=== PATIENT | female | born 1945 ===

== ENCOUNTER 2017-05-24 07:04 | Observation (INO) | payer MEDICARE, MEDICAID ==
--- NOTE | 2017-05-24 07:41 | ED PDOC ---
HPI: CCC, URI, Sore Throat Time Seen by Provider: 05/24/17 07:08 Chief Complaint (Nursing): Shortness Of Breath Chief Complaint (Provider): cough, cold, congestion History Per: Patient History/Exam Limitations: no limitations Onset/Duration Of Symptoms: Days (x 2 weeks ) Additional Complaint(s): Sarina Sanches is a 71 year old female, with no previous medical history, who presents to the ED with complaints of a cough associated with generalized body weakness, dizziness, nausea and congestion ongoing for the past 2-3 weeks. Patient reports developing mild shortness of breath this morning which prompted ED visit. She denies any chest pain. PMD: [facility] Past Medical History Reviewed: Historical Data, Nursing Documentation, Vital Signs Vital Signs: Last Vital Signs Temp 98 F 05/24/17 15:07 Pulse 86 05/24/17 15:07 Resp 17 05/24/17 15:07 BP 136/86 05/24/17 15:07 Pulse Ox 98 05/24/17 15:07 - Medical History PMH: No Chronic Diseases, Migraine - Surgical History Surgical History: Cholecystectomy, Hernia Repair - Family History Family History: States: Unknown Family Hx - Home Medications Home Medications: Ambulatory Orders Medication Instructions Recorded Azithromycin [Zithromax Z-Agustin] 250 mg PO DAILY #1 packet 01/23/15 Codeine Phosphate/Promethazi 5 ml PO Q6 #80 ml 01/25/15 [Promethazine with Codeine 10 mg/5 ml-6.25 mg/] Nitrofurantoin Macrocrystals 100 mg PO BID #13 cap 05/24/17 [Macrobid] - Allergies Allergies/Adverse Reactions: Allergies Allergy/AdvReac Type Severity Reaction Status Date / Time No Known Allergies Allergy Verified 05/24/17 07:24 Review of Systems ROS Statement: Except As Marked, All Systems Reviewed And Found Negative Constitutional: Negative for: Fever, Chills Cardiovascular: Negative for: Chest Pain Respiratory: Positive for: Cough, Shortness of Breath, Other (congestion ) Gastrointestinal: Positive for: Nausea Neurological: Positive for: Weakness, Dizziness Physical Exam - Reviewed Nursing Documentation Reviewed: Yes Vital Signs Reviewed: Yes - Physical Exam Appears: Positive for: Well, Non-toxic, No Acute Distress Head Exam: Positive for: ATRAUMATIC, NORMAL INSPECTION, NORMOCEPHALIC Skin: Positive for: Normal Color, Warm, DRY Eye Exam: Positive for: EOMI, Normal appearance, PERRL ENT: Positive for: Normal ENT Inspection. Negative for: Pharyngeal Erythema, Tonsillar Exudate Neck: Positive for: Normal, Painless ROM, Supple Cardiovascular/Chest: Positive for: Regular Rate, Rhythm Respiratory: Positive for: CNT, Normal Breath Sounds Gastrointestinal/Abdominal: Positive for: Normal Exam, Bowel Sounds, Soft. Negative for: Tenderness Extremity: Positive for: Normal ROM Neurologic/Psych: Positive for: Alert, Oriented - Laboratory Results Result Diagrams: 05/24/17 07:00 05/24/17 07:00 - ECG O2 Sat by Pulse Oximetry: 97 (RA) Pulse Ox Interpretation: Normal Medical Decision Making Medical Decision Making: Initial Impression: Viral Syndrome vs pneumonia Initial Plan: * CT head w/o contrast * EKG * labs * Troponin I * urine dipstick * D-dimer * PTT * PT * CXR * accu-check * urinalysis * reevaluation Scribe Attestation: Documented by Nicol Bucio, acting as a scribe for Nicol Saleh MD. Provider Scribe Attestation: All medical record entries made by the Scribe were at my direction and personally dictated by me. I have reviewed the chart and agree that the record accurately reflects my personal performance of the history, physical exam, medical decision making, and the department course for this patient. I have also personally directed, reviewed, and agree with the discharge instructions and disposition. ED OBSERVATION Date of observation admission: 05/24/17 Time of observation admission: 08:00 - Observation admission statement Patient is being placed in observation because:: Pending ED workup - Goals of Observation Goals of observation are:: Ed workup and disposition Disposition - Clinical Impression Clinical Impression: UTI (urinary tract infection) - Disposition Disposition: Routine/Home Disposition Time: 15:00 Condition: STABLE
[2017-05-24 08:02] LABS: BASO # 0.1 K/uL (0.0-0.2); BASO % 0.5 % (0.0-2.0); EOS # 0.2 K/uL (0.0-0.7); HEMOGLOBIN 13.7 g/dL (12.0-16.0); LYMPH # 1.4 K/uL (1.0-4.3); LYMPH % 11.4 % (20.0-40.0); MEAN CELL VOLUME 88.2 fl (81.0-99.0); MEAN CORPUSCULAR HGB CONC 32.9 g/dL (33.0-37.0); MEAN PLATELET VOLUME 7.1 fl (7.2-11.7); MONO # 0.6 K/uL (0.0-0.8); MONO % 4.9 % (0.0-10.0); NEUT % 81.2 % (50.0-75.0); RBC 4.72 Mil/uL (3.80-5.20); RED CELL DISTRIBUTION WIDTH 14.1 % (11.5-14.5); WHITE BLOOD COUNT 12.3 K/uL (4.8-10.8)
[2017-05-24 08:25] LABS: ALB/GLOB RATIO 1.2 (1.0-2.1); ALBUMIN 4.5 g/dL (3.5-5.0); ALT/SGPT 29 U/L (9-52); AST/SGOT 23 U/L (14-36); BLOOD UREA NITROGEN 18 mg/dl (7-17); CALCIUM 9.8 mg/dL (8.4-10.2); GFR AFRICAN-AMERICAN > 60; GFR NON-AFRICAN AMERICAN > 60
[2017-05-24 09:32] LABS: PROTHROMBIN TIME 11.1 Seconds (9.8-13.1)
[2017-05-24 09:33] LABS: PARTIAL THROMBOPLASTIN TIME 28.5 Seconds (25.6-37.1)
[2017-05-24] MEDS ORDERED: Iodixanol 320 MG/ML 100 ML BOTTLE IV ONE (09:47)
[2017-05-24] MEDS ORDERED: Sodium Chloride 0.9% 50 ML IV ONE (09:47)
--- NOTE | 2017-05-24 12:16 | CT ---
PROCEDURE: CT HEAD WITHOUT CONTRAST. HISTORY: Dizziness COMPARISON: None available. TECHNIQUE: Axial computed tomography images were obtained through the head/brain without intravenous contrast. Radiation dose: Total exam DLP = 1098.96 mGy-cm. This CT exam was performed using one or more of the following dose reduction techniques: Automated exposure control, adjustment of the mA and/or kV according to patient size, and/or use of iterative reconstruction technique. FINDINGS: HEMORRHAGE: No acute parenchymal, subarachnoid nor extra-axial hemorrhage. BRAIN: Mild chronic periventricular white matter ischemic changes seen extending peripherally into the deep and to a lesser degree subcortical white matter both cerebral hemispheres. There also appears be some extension of these changes into white matter tracts of both basal nuclei. The subcortical white matter is well. VENTRICLES: Unremarkable. No hydrocephalus. CALVARIUM: No acute calvarial fractures PARANASAL SINUSES: Unremarkable as visualized. No significant inflammatory changes. MASTOID AIR CELLS: Unremarkable as visualized. No inflammatory changes. OTHER FINDINGS: None. IMPRESSION: No acute intracranial hemorrhage. Mild chronic white matter ischemic changes. There also appears to be some extension these changes into the white matter tracts of both basal nuclei.
--- NOTE | 2017-05-24 13:04 | CT ---
PROCEDURE: CT Chest with contrast (Pulmonary Angiogram) HISTORY: SOB COMPARISON: None available. TECHNIQUE: Axial computed tomography images were obtained of the chest in the pulmonary arterial phase of enhancement. Coronal and sagittal reformatted images were created and reviewed. Intravenous contrast dose: Visipaque 320 contrast Radiation dose: Total exam DLP = 381.08 mGy-cm. This CT exam was performed using one or more of the following dose reduction techniques: Automated exposure control, adjustment of the mA and/or kV according to patient size, and/or use of iterative reconstruction technique. FINDINGS: PULMONARY ARTERIES: Visualized pulmonary trunk, right and left main, lobar, segmental and proximal subsegmental branches of the pulmonary arteries are well opacified with no definitive filling defects seen to suggest acute pulmonary embolus. Pulmonary trunk measures approximately 2.7 cm. AORTA: There is no evidence of thoracic aortic aneurysm or dissection. Ascending thoracic aorta measures approximately 3.4 cm and descending thoracic aorta measures approximately 2.55 cm. LUNGS: Chronic appearing pleural thickening and chronic appearing parenchymal atelectasis/scarring and bronchiectasis within the posterior aspect right upper lobe and right lung apex. . Scarring posterior aspect right upper lobe and right apex in addition, minor scarring changes left lung apex. There are scattered translucent ground-glass and nodular opacity seen scattered throughout the upper and lower lobes bilaterally. Tiny calcified granuloma right lateral upper lobe near the fissure. 5 mm subpleural based nodule right lateral upper lobe along the anterolateral convexity. Few tiny subpleural nodular densities also seen in the right upper lobe slightly more inferiorly located More discrete solid-appearing 5 mm nodular density superior segment right lower lobe with 5 mm subpleural nodule A few right upper lobe and right lung apex. Minimal scarring changes left lung apex. Approximately 6 mm semi-solid nodular density left anterior upper lung field. Follow-up CT scan at 6 month interval could be performed to assess stability. PLEURAL SPACES: Unremarkable. No effusion or pneuomothorax. HEART: Heart size is within range of normal. No evidence of significant pericardial effusion. LYMPH NODES: Few small partially calcified mediastinal lymph nodes are present consistent with prior exposure to a granulomatous disease process. BONES, CHEST WALL: Unremarkable. No fracture or destructive lesion OTHER FINDINGS: Central airways midline and patent. No endoluminal lesions seen. Moderately large hiatal hernia with wall thickening of the distal esophagus likely due to protrusion of gastric mucosa. Possibility of esophagitis or other intrinsic/invasive wall lesion cannot be excluded. Clinical correlation recommended. Endoscopy could be performed if clinically indicated. Status post cholecystectomy with metallic clips right upper quadrant of the abdomen. Slightly nodular appearing left adrenal gland IMPRESSION: No evidence of acute pulmonary embolus. Chronic appearing pleural thickening and chronic appearing parenchymal atelectasis/scarring and bronchiectasis within the posterior aspect right upper lobe and right lung apex. . Scarring posterior aspect right upper lobe and right apex in addition, minor scarring changes left lung apex. There are scattered translucent ground-glass and nodular opacities seen scattered throughout the upper and lower lobes bilaterally. Tiny calcified granuloma right lateral upper lobe near the fissure. Scattered parenchymal and pleural based nodular densities seen throughout both lung pitt as above. Recommend followup CT scan in 6 months for further evaluation and to assess for changes in size. Moderately large hiatal hernia with wall thickening of the distal esophagus likely due to protrusion of gastric mucosa. Possibility of esophagitis or other intrinsic/invasive wall lesion cannot be excluded. Clinical correlation recommended. Endoscopy could be performed if clinically indicated. Status post cholecystectomy with metallic clips right upper quadrant of the abdomen.
--- NOTE | 2017-05-24 13:52 | RAD ---
HISTORY: SOB COMPARISON: Comparison made with prior chest radiograph 01/24/2015. Correlation also made with subsequent CTA chest 05/24/2017. TECHNIQUE: Chest PA and lateral FINDINGS: LUNGS: Chronic pleural thickening scarring/ fibrosis atelectasis/bronchiectasis right upper lobe. Minimal scarring changes left upper lobe as well as the scattered vague nodular opacities throughout the lung pitt bilaterally less well seen compared to high-resolution CT scan chest. Please refer to that report for additional details. Tiny granuloma right upper lobe and a few subpleural nodular densities also poorly seen. PLEURA: No significant pleural effusion identified. No pneumothorax apparent. CARDIOVASCULAR: Normal. Moderate-sized hiatal hernia not well delineated on this exam OSSEOUS STRUCTURES: No significant abnormalities. VISUALIZED UPPER ABDOMEN: Status post cholecystectomy with metallic clips right upper quadrant of the abdomen OTHER FINDINGS: None. Metallic IMPRESSION: Chronic pleural thickening scarring/ fibrosis atelectasis/bronchiectasis right upper lobe. Minimal scarring changes left upper lobe as well as the scattered vague nodular opacities throughout the lung pitt bilaterally less well seen compared to high-resolution CT scan chest. Please refer to that report for additional details. Tiny granuloma right upper lobe and a few subpleural nodular densities also poorly seen.
--- NOTE | 2017-05-24 13:54 | CARD ---
APPROVED REPORT EKG Measurement Heart [id number] <Conclusion> Sinus rhythm with premature atrial complexes Otherwise normal ECG
[2017-05-24 14:40] LABS: SQUAMOUS EPITHIAL 5 /hpf (0-5); URINE BILIRUBIN NEGATIVE (NEGATIVE); URINE BLOOD SMALL (NEGATIVE); URINE CLARITY CLEAR (Clear); URINE COLOR YELLOW (YELLOW); URINE GLUCOSE (UA) NEG (Normal); URINE LEUKOCYTE ESTERASE MOD Leu/uL (Negative); URINE NITRATE POSITIVE (NEGATIVE); URINE PROTEIN 30 mg/dL (NEGATIVE); URINE UROBILINOGEN 0.2-1.0 mg/dL (0.2-1.0)
[2017-05-24 14:48] LABS: URINE BACTERIA MOD (<OCC)
[2017-05-24 15:07] VITALS: BP 136/86; PULSE 86; RESP 17; TEMP 98
[2017-06-02 16:41] VITALS: O2SAT 97
== END 2017-05-24 15:07 | disposition home or self-care (01) ==
LOC: H.ER 07:04 → H.EROBSV 08:00
PROVIDERS: ADMIT Emergency Medicine; ATTEND Emergency Medicine
DX: N39.0 Urinary tract infection, site not specified (principal)
CPT/HCPCS: 70450; 71020; 71275; 80053; 81003; 82948; 84484; 85025; 85378; 85610; 85730; 87040; 87086; 87181; 93005; 99284; G0378; Q9967

== ENCOUNTER 2017-11-11 11:01 | Emergency (ER) | payer OTHER, MEDICAID ==
[2017-11-11 11:04] VITALS: BMI 26.9
[2017-11-11 11:06] VITALS: TEMP 97.9; O2SAT 98
[2017-11-11 12:47] LABS: BLOOD UREA NITROGEN 15 mg/dl (7-17); CALCIUM 9.5 mg/dL (8.4-10.2); CARBON DIOXIDE 25 mmol/L (22-30); CHLORIDE 108 mmol/L (98-107); GFR AFRICAN-AMERICAN > 60; GLUCOSE,RANDOM 87 mg/dL (65-105); POTASSIUM 3.7 MMOL/L (3.6-5.0); SODIUM 140 mmol/l (132-148)
[2017-11-11 12:50] LABS: BASO % 0.5 % (0.0-2.0); EOS # 0.2 K/uL (0.0-0.7); HEMATOCRIT 40.1 % (34.0-47.0); LYMPH # 1.6 K/uL (1.0-4.3); LYMPH % 19.9 % (20.0-40.0); MEAN CELL VOLUME 88.6 fl (81.0-99.0); MEAN CORPUSCULAR HEMOGLOBIN 29.7 pg (27.0-31.0); MEAN CORPUSCULAR HGB CONC 33.5 g/dL (33.0-37.0); MEAN PLATELET VOLUME 7.2 fl (7.2-11.7); MONO # 0.5 K/uL (0.0-0.8); MONO % 5.8 % (0.0-10.0); NEUT # 5.9 K/uL (1.8-7.0); NEUT % 71.8 % (50.0-75.0); NRBC % 0.1 % (0.0-0.0); RED CELL DISTRIBUTION WIDTH 13.9 % (11.5-14.5); WHITE BLOOD COUNT 8.2 K/uL (4.8-10.8)
--- NOTE | 2017-11-11 12:59 | ED PDOC ---
HPI: Headache Time Seen by Provider: 11/11/17 11:41 Chief Complaint (Nursing): Dizziness/Lightheaded History Per: Patient History/Exam Limitations: no limitations Current Symptoms Are (Timing): Still Present Quality: "Pain" Preceeding Symptoms: Known Migraine Symptoms. denies: Visual Disturbances Associated Symptoms: denies: Photophobia, Blurred Vision, Nausea, Vomiting, Extremity Weakness Additional History Per: Patient Additional Complaint(s): 71 year old female, with PMHx of migraine, and vertigo, presents to ED for evaluation of dizziness, chest pain, and headache since this morning. Pt notes having similar chest pressure in the past, and states chest pain is non- radiating and non-exertional. Notes having dizziness intermittently in the past , and has been prescribed Meclizine by her PMD which she stopped taking. Notes that her headache is similar to previous migraine episodes. Pt states that she is concerned because she has not experienced all of the symptoms simultaneously in the past. Denies leg swelling, palpitations, shortness of breath, or fever. Past Medical History Reviewed: Historical Data, Nursing Documentation, Vital Signs Vital Signs: Last Vital Signs Temp 97.9 F 11/11/17 11:33 Pulse 85 11/11/17 11:33 Resp 20 11/11/17 11:33 BP 160/93 H 11/11/17 11:33 Pulse Ox 98 11/11/17 11:33 - Medical History PMH: Migraine Other PMH: Vertigo - Surgical History Surgical History: Cholecystectomy, Hernia Repair - Family History Family History: States: No Known Family Hx - Home Medications Home Medications: Ambulatory Orders Medication Instructions Recorded Azithromycin [Zithromax Z-Agustin] 250 mg PO DAILY #1 packet 01/23/15 Codeine Phosphate/Promethazi 5 ml PO Q6 #80 ml 01/25/15 [Promethazine with Codeine 10 mg/5 ml-6.25 mg/] Nitrofurantoin Macrocrystals 100 mg PO BID #13 cap 05/24/17 [Macrobid] Promethazine [Phenergan] 12.5 mg PO Q6 PRN #20 tab 11/11/17 - Allergies Allergies/Adverse Reactions: Allergies Allergy/AdvReac Type Severity Reaction Status Date / Time No Known Allergies Allergy Verified 11/11/17 11:33 Review of Systems ROS Statement: Except As Marked, All Systems Reviewed And Found Negative Constitutional: Negative for: Fever, Chills Cardiovascular: Positive for: Chest Pain. Negative for: Palpitations Respiratory: Negative for: Cough, Shortness of Breath Gastrointestinal: Negative for: Nausea, Vomiting, Abdominal Pain, Diarrhea Neurological: Positive for: Headache, Dizziness. Negative for: Weakness, Numbness Physical Exam - Reviewed Nursing Documentation Reviewed: Yes Vital Signs Reviewed: Yes - Physical Exam Appears: Positive for: Non-toxic, No Acute Distress Head Exam: Positive for: ATRAUMATIC, NORMOCEPHALIC Skin: Positive for: Normal Color, Warm, DRY Eye Exam: Positive for: Normal appearance, EOMI Neck: Positive for: Normal, Painless ROM Cardiovascular/Chest: Positive for: Regular Rate, Rhythm Respiratory: Positive for: Normal Breath Sounds. Negative for: Rales, Rhonchi, Wheezing, Respiratory Distress Gastrointestinal/Abdominal: Positive for: Soft. Negative for: Tenderness Extremity: Positive for: Normal ROM Neurologic/Psych: Positive for: Alert, Oriented - Laboratory Results Result Diagrams: 11/11/17 12:33 11/11/17 12:33 - ECG O2 Sat by Pulse Oximetry: 98 Medical Decision Making Medical Decision Making: Impression: headache, dizziness, chest pain Differential Diagnosis: Vertigo, migraine, ACS Plan: Head CT EKG Blood work Reassess Accession No. : [id number] Patient Name / ID : ABBY CLAIRE / [id number] Exam Date : 11/11/2017 12:39:06 ( Approved ) Study Comment : Sex / Age : F / 71Y Creator : Franky Edwards MD Dictator : Franky Edwards MD Vulcanized Fiber Unit Operator : Parts Driver : Franky Edwards MD Approver2 : Report Date : 11/11/2017 13:24:27 My Comment : PROCEDURE: CT HEAD WITHOUT CONTRAST. HISTORY: dizziness COMPARISON: Unenhanced head CT 05/24/2017. TECHNIQUE: Axial computed tomography images were obtained through the head/brain without intravenous contrast. Radiation dose: Total exam DLP = 775.14 mGy-cm. This CT exam was performed using one or more of the following dose reduction techniques: Automated exposure control, adjustment of the mA and/or kV according to patient size, and/or use of iterative reconstruction technique. FINDINGS: HEMORRHAGE: No intracranial hemorrhage. BRAIN: Diffuse expansion of the ventriculosulcal and cisternal spaces is appreciated with white matter lucency compatible with diffuse cerebral atrophy and chronic microangiopathy. The overall appearance is not significantly changed in the interval. There is no mass effect in the posterior fossa contents remain unremarkable as well as the brainstem. There is no suspicious extra-axial fluid collection appreciated. VENTRICLES: Unremarkable. No hydrocephalus. CALVARIUM: Unremarkable. PARANASAL SINUSES: Unremarkable as visualized. No significant inflammatory changes. MASTOID AIR CELLS: Unremarkable as visualized. No inflammatory changes. OTHER FINDINGS: None. IMPRESSION: Stable limited age-related neuro degenerative changes are again appreciated. No definite acute findings by standard CT criteria. Follow-up CT or MRI are available clinically warranted. 1500 Patient ambulated with steady gait. Scribe Attestation: Documented by Alyse Barrett, acting as a scribe for Mariama Samayoa MD Provider Scribe Attestation: All medical record entries made by the Scribe were at my direction and personally dictated by me. I have reviewed the chart and agree that the record accurately reflects my personal performance of the history, physical exam, medical decision making, and the department course for this patient. I have also personally directed, reviewed, and agree with the discharge instructions and disposition. Disposition - Clinical Impression Clinical Impression: Dizziness, Recurrent vertigo, Migraines - Patient ED Disposition Is Patient to be Admitted: No Doctor Will See Patient In The: Office Counseled Patient/Family Regarding: Studies Performed, Diagnosis, Need For Followup - Disposition Referrals: Wang Villalpando MD [Family Provider] - Disposition: Routine/Home Disposition Time: 15:00 Condition: GOOD Additional Instructions: Follow up with your PCP in 2-3 days. Prescriptions: Promethazine [Phenergan] 12.5 mg PO Q6 PRN #20 tab PRN Reason: Dizziness Instructions: Chest Pain (ED), Migraine Headache (ED), Vertigo (ED) MIREYA Risk Score for UA/NSTEMI - MIREYA Risk Score Age > 64: YES 3 or more CAD Risk Factors: NO Known CAD (Stenosis greater than 50%): NO Aspirin use in past 7 days: NO Severe Angina: NO EKG ST changes greater than 0.5mm: NO Positive Cardiac Marker: NO MIREYA Score: 1 Risk %: 5%
--- NOTE | 2017-11-11 13:26 | CT ---
PROCEDURE: CT HEAD WITHOUT CONTRAST. HISTORY: dizziness COMPARISON: Unenhanced head CT 05/24/2017. TECHNIQUE: Axial computed tomography images were obtained through the head/brain without intravenous contrast. Radiation dose: Total exam DLP = 775.14 mGy-cm. This CT exam was performed using one or more of the following dose reduction techniques: Automated exposure control, adjustment of the mA and/or kV according to patient size, and/or use of iterative reconstruction technique. FINDINGS: HEMORRHAGE: No intracranial hemorrhage. BRAIN: Diffuse expansion of the ventriculosulcal and cisternal spaces is appreciated with white matter lucency compatible with diffuse cerebral atrophy and chronic microangiopathy. The overall appearance is not significantly changed in the interval. There is no mass effect in the posterior fossa contents remain unremarkable as well as the brainstem. There is no suspicious extra-axial fluid collection appreciated. VENTRICLES: Unremarkable. No hydrocephalus. CALVARIUM: Unremarkable. PARANASAL SINUSES: Unremarkable as visualized. No significant inflammatory changes. MASTOID AIR CELLS: Unremarkable as visualized. No inflammatory changes. OTHER FINDINGS: None. IMPRESSION: Stable limited age-related neuro degenerative changes are again appreciated. No definite acute findings by standard CT criteria. Follow-up CT or MRI are available clinically warranted.
[2017-11-11 16:12] VITALS: BP 146/94; PULSE 87; RESP 18
--- NOTE | 2017-11-13 19:36 | CARD ---
APPROVED REPORT EKG Measurement Heart [id number] MA [id number] <Conclusion> Normal sinus rhythm Normal ECG
== END 2017-11-11 16:12 | disposition home or self-care (01) ==
LOC: H.ER 11:01
DX: R42 Dizziness and giddiness (principal); G43.909 Migraine, unspecified, not intractable, without status migrainosus
CPT/HCPCS: 70450; 80048; 84484; 85025; 93005; 99284; Q0169